=== PATIENT | male | born 1980 | race Two or more races ===

== ENCOUNTER 2017-08-02 08:32 | Emergency (ER) | payer OTHER ==
[~2017-08-02] VITALS: Ht 175.3 cm; Wt 72.6 kg
--- NOTE | 2017-08-02 08:35 | NUR ---
PATIENT TO ED DT N/V/D X 7 HOURS. PER PATIENT HE VOMITTED X 7 WITHIN 7 HOURS. PATIENT REPORTED OCCASIONAL ABDOMINAL CRAMPS. PATIENT IS AFEBRILE. VSS
[2017-08-02] MEDS ORDERED: ONDANSETRON HCL/PF 4 MG/2 ML VIAL ONE (08:57)
[2017-08-02] MEDS ORDERED: ONDANSETRON HCL/PF - ER 4 MG/2 ML VIAL IV ONE (09:00)
[2017-08-02] MEDS ORDERED: IV NS 0.9% 1,000 ML BAG IV ONE (09:00)
[2017-08-02 11:20] VITALS: BP 124/80
--- NOTE | 2017-08-02 11:21 | NUR ---
Patient discharged to home in stable condition. Written and verbal after care instructions given. Patient verbalizes understanding of instruction.
--- NOTE | 2017-08-02 11:21 | NUR ---
IV removed. Catheter intact and site benign. Pressure and 4x4 applied to site. No bleeding noted.
== END 2017-08-02 11:21 | disposition home or self-care (01) ==
LOC: ER 08:35
DX: R11.10 Vomiting, unspecified (principal); E86.0 Dehydration; F41.9 Anxiety disorder, unspecified; F10.129 Alcohol abuse with intoxication, unspecified; F17.200 Nicotine dependence, unspecified, uncomplicated
CPT/HCPCS: 96361; 96374; 99284; 99406; A4606; J2405 ×2; Z7610

== ENCOUNTER 2021-01-21 21:01 | Inpatient (IN) | payer OTHER ==
[~2021-01-21] VITALS: Ht 175.3 cm; Wt 80.3 kg
--- NOTE | 2021-01-21 21:24 | NUR ---
BIBS C/O LOWER ABD PAIN X3 HOURS +N -V, TO ER BED 9
[2021-01-21 21:28] LABS: BASOPHILS # (AUTO) 0.1 /CMM (0.0-0.2); BASOPHILS % (AUTO) 0.7 % (0.0-2.0); EOSINOPHILS % (AUTO) 1.2 % (0.0-6.0); HEMATOCRIT 45 % (39-51); HEMOGLOBIN 14.9 g/dL (13.5-17.5); LYMPHOCYTES # (AUTO) 1.3 /CMM (0.8-4.8); LYMPHOCYTES % (AUTO) 16.1 % (20.0-44.0); MEAN CORPUSCULAR HGB CONC 33 g/dl (31.0-36.0); MEAN CORPUSCULAR VOLUME 90 fL (80-96); MONOCYTES # (AUTO) 0.6 /CMM (0.1-1.30); MONOCYTES % (AUTO) 7.4 % (2.0-12.0); NEUTROPHILS % (AUTO) 74.6 % (43.0-81.0); PLATELET COUNT (AUTO) 282 /CMM (150-450); RED BLOOD CELL COUNT(AUTO) 5.01 MIL/uL (4.5-6.0)
[2021-01-21] MEDS ORDERED: MORPHINE SULFATE INJ 2 MG/ML DISP.SYRIN IV ONE (21:30)
[2021-01-21] MEDS ORDERED: IV NS 0.9% 1,000 ML BAG IV ONE (21:30)
[2021-01-21] MEDS ORDERED: ONDANSETRON HCL/PF 4 MG/2 ML VIAL IVP ONE (21:30)
[2021-01-21] MEDS ORDERED: ONDANSETRON HCL/PF 4 MG/2 ML VIAL ONE (21:33)
[2021-01-21] MEDS ORDERED: MORPHINE SULFATE INJ 4 MG/ML DISP.SYRIN ONE (21:33)
[2021-01-21 21:55] LABS: CALCIUM, SERUM 9.4 mg/dL (8.5-10.1); CREATININE 1.1 mg/dL (0.6-1.3); POTASSIUM 3.4 mmol/L (3.5-5.1)
[2021-01-21 21:59] LABS: ALBUMIN 4.2 g/dL (3.4-5.0); BILIRUBIN,DIRECT 0.2 mg/dL (0.0-0.2); BILIRUBIN,TOTAL 0.6 mg/dL (0.2-1.0); TOTAL PROTEIN, SERUM 7.4 g/dL (6.4-8.2)
[2021-01-21 22:07] LABS: BILIRUBIN,URINE Negative (NEGATIVE); COLOR,URINE YELLOW (YELLOW); LEUKOCYTE ESTERASE ,URINE Negative (NEGATIVE); NITRITE, URINE Negative (NEGATIVE); PH,URINE 8.5 (5.0-8.0); PROTEIN,URINE Negative (NEGATIVE); UGLUCOSE Negative (NEGATIVE); UROBILINOGEN,URINE 0.2 EU/dL (0.2)
[2021-01-21] MEDS ORDERED: CT SWABBABLE VALVE TRANS SET 1 EA INFUS.SET MC ONE (23:02)
[2021-01-21] MEDS ORDERED: IV NS 0.9% 250 ML IV ONE (23:02)
[2021-01-21] MEDS ORDERED: IOHEXOL-300 100 ML VIAL IV ONE (23:02)
[2021-01-21] MEDS ORDERED: IBUP-1955 PO (23:36)
[2021-01-21] MEDS ORDERED: ONDA4TAB5 PO (23:36)
[2021-01-21] MEDS ORDERED: TRAM50TA2 PO (23:36)
--- NOTE | 2021-01-22 00:25 | NUR ---
covid swab collected and sent out
--- NOTE | 2021-01-22 01:18 | NUR ---
CALL FROM LAB. RAPID COVID NEGATIVE.
--- NOTE | 2021-01-22 01:23 | NUR ---
MS 328-2
[2021-01-22] MEDS ORDERED: MORPHINE SULFATE INJ 2 MG/ML DISP.SYRIN IV PRN (01:30)
[2021-01-22] MEDS ORDERED: HYDROCODONE/APAP 5/325MG TABLET PO PRN (01:30)
[2021-01-22] MEDS ORDERED: ACETAMINOPHEN 325 MG TABLET PO PRN (01:30)
[2021-01-22] MEDS ORDERED: Z GUARD REMEDY 2 OZ OINT TP PRN (01:30)
[2021-01-22] MEDS ORDERED: MAGNESIUM HYDROXIDE 30 ML UDC PO PRN (01:30)
[2021-01-22] MEDS ORDERED: ONDANSETRON HCL/PF 4 MG/2 ML VIAL IVP PRN (01:30)
[2021-01-22] MEDS ORDERED: MAG HYDROX/AL HYDROX/SIMETH 30 ML UDC PO PRN (01:30)
[2021-01-22] MEDS ORDERED: ZOLPIDEM TARTRATE 5 MG TABLET PO PRN (01:30)
--- NOTE | 2021-01-22 02:00 | NUR ---
MS RN ADMITTING NOTES: PATIENT ADMITTED TO FLOOR VIA WHEEL CHAIR, ALERT AND ORIENTED X4,AMBULATORY AND ABLE TO MAKE NEEDS KNOWN, PLACED IN BED COMFORTABLY, ORIENT TO PLACE AND REMIND PATIENT TO USE CALL LIGHTS WHEN NEEDED ASSITANCE, PATIENT ON NPO,NKA, WITH IV LINE AT RAC g#18, ON D5 1/2 NSS @125ML/HR INFUSING WELL, SKIN ASSESSMENT DONE NO SKIN ISSUES OBSERVED, BED WAS IN LOW POSITION, CALL LIGHTS WITHIN REACH, KEPT CLEAN AND WARM AND DRY, ALL NEEDS MET, DUE MEDS GIVEN, WILL CONTINUE TO MONITOR.
[2021-01-22 02:30] VITALS: BP 115/68
[2021-01-22] MEDS: IV D5/0.45 NACL 1,000 ML IV SCH ×2 (03:01→09:04)
[2021-01-22 04:31] VITALS: BP 115/68
--- NOTE | 2021-01-22 07:30 | NUR ---
MS RN CLOSING NOTES: PATIENT AWAKE IN BED, A/O X3-4 , BED IN LOW POSITION , CALL LIGHTS WITHIN REACH,NO COMPLAIN OF PAIN AND DISCOMFORT, NO SOB NOTED, ALL NEEDS MET, ENDORSE TO INCOMING SHIFT.
--- NOTE | 2021-01-22 08:05 | NUR ---
MS RN OPENING NOTE PATIENT IS IN BED RESTING, PATIENT IS IN NO ACUTE DISTRESS. PATIENT IS ON ROOM AIR TOLERATING WELL. SAFETY PRECAUTIONS ARE ON, BED IS LOCKED IN THE LOWEST POSITION, WITH SIDE RAILS UP, CALL LIGHT WITHIN REACH, WILL CONTINUE TO MONITOR CLOSELY THOROUGH OUT THE SHIFT.
[2021-01-22] MEDS ORDERED: PANTOPRAZOLE 40 MG VIAL IV SCH (09:00)
[2021-01-22] MEDS ORDERED: DIATR MEGLU/DIATRIZOATE SODIUM 120 ML BOTTLE (GASTROGRAPHIN) ONE (14:30)
--- NOTE | 2021-01-22 17:40 | NUR ---
MS BOTTOM CRANE OPERATOR NOTE PATIENT IS IN NO ACUTE DISTRESS. PATIENT IS MEDICALLY STABLE TO BE DISCHARGED. DISCHARGED INSTRUCTIONS PROVIDED, PATIENT VERBALIZED UNDERSTANDING. PATIENTS NEED ADDRESSED DURING THE STAY. PATIENT IV LINE AND ID BAND REMOVED. BELONGING LIST WENT OVER AND SIGNED. PATIENT IS BEING PICKED UP BY HIS PRIVATE CAR. MD IS GUIDRY OF DISCHARGE.
== END 2021-01-22 17:29 | disposition home or self-care (01) | DRG 390 ==
LOC: ER 21:02 → MED 01-22 01:37
PROVIDERS: ADMIT Nurse Practitioner Acute Care; ATTEND Nurse Practitioner Acute Care
DX: K56.600 Partial intestinal obstruction, unspecified as to cause (principal); F41.9 Anxiety disorder, unspecified; Z87.891 Personal history of nicotine dependence; Z79.891 Long term (current) use of opiate analgesic; G89.4 Chronic pain syndrome; E87.6 Hypokalemia; Z20.822 Contact with and (suspected) exposure to COVID-19
CPT/HCPCS: 36415; 74250-TC; 80048-TC; 80076-TC; 83690-TC; 85025-TC; 87081-TC; C9113; C9803; G0378; J2270; J2405; J3490; J7050; Q9963; Q9967